=== PATIENT | male | born 1965 | race Caucasian/White ===

== ENCOUNTER 2019-01-27 17:59 | Emergency (ER) | payer OTHER, SELFPAY ==
[2019-01-27 18:04] VITALS: BP 145/86; PULSE 61; RESP 20; TEMP 37; O2SAT 98; BMI 34.2
--- NOTE | 2019-01-27 18:12 | DI.US.S_ITS ---
PROCEDURE: US PERIPH VENOUS LOW EXTREM LT INDICATIONS: LEFT LEG PAIN TECHNIQUE: Real-time imaging, as well as color and pulse Doppler interrogation, were performed of the lower extremity deep veins from the inguinal ligament to the popliteal fossa. COMPARISON: None. FINDINGS: The common femoral, femoral and popliteal veins are normally compressible, and free of intraluminal thrombus. Color and pulse Doppler demonstrate normal phasic intraluminal flow. There is normal augmentation response to distal compression maneuver. No thrombosis in the area of concern in the lateral calf and lateral proximal lower extremity. IMPRESSION: No left lower extremity DVT. Dictated by: Florencio Little M.D. on 01/27/2019 at 19:49 Approved by: Florencio Little M.D. on 01/27/2019 at 19:50
--- NOTE | 2019-01-27 18:52 | ED_ITS ---
HPI - Extremity Problem General Chief complaint: Extremity Problem,Nontraumatic Stated complaint: thinks blood clot left leg Time Seen by Provider: 01/27/19 18:52 Source: patient Mode of arrival: ambulatory Limitations: no limitations History of Present Illness HPI Narrative: Patient is a 53-year-old male with known arthritis. Is also under the care of a chiropractor. Patient states that for the past several days he has thought that he is having swelling in his left lower extremity. Has had decreased exercise tolerance to pain in his left lower extremity. Was seen by his chiropractor who thought that he potentially could have a blood clot was sent to the emergency department for evaluation. Related Data Previous Rx's Medication Instructions Recorded gabapentin 300 mg PO DAILY #30 cap 01/27/19 Allergies Allergy/AdvReac Type Severity Reaction Status Date / Time cyclobenzaprine AdvReac Verified 01/27/19 18:09 [facility] Review of Systems Constitutional Denies fever(s) and Denies headache(s) ENT Ears, Nose, Mouth, and Throat: Denies headache(s) Cardiovascular Denies chest pain and Denies dyspnea Respiratory Denies dyspnea Gastrointestinal Gastrointestinal: Denies abdominal pain Musculoskeletal Reports tingling (Left leg) Comments: Left leg pain and swelling Integumentary/Breasts Denies lesions and Denies rash Neurologic Denies headache(s) and Reports tingling (Left leg) Hematologic/Lymphatic Denies easy bleeding and Denies easy bruising [facility] Medical History Arthritis (Acute) Social History Smoking Status: Never smoker Social History Smoking Status: Never smoker Exam Initial Vital Signs Initial Vital Signs: Vital Signs Temperature 98.6 F 01/27/19 18:04 Pulse Rate 61 01/27/19 18:04 Respiratory Rate 20 01/27/19 18:04 Blood Pressure 145/86 H 01/27/19 18:04 Pulse Oximetry 98 01/27/19 18:04 Const General: cooperative, comfortable and well groomed Orientation: alert and awake HENMT Head: normal to inspection and normocephalic Resp Effort & Inspection: normal respiratory effort Cardio Rate: regular rate Skin Lesions: no lesions Rashes: no rashes Neuro General: alert and awake Cognition: normal cognition Speech: speech normal Motor: muscle tone normal throughout Extrem General: normal to inspection, capillary refill normal and No edema Psych Appearance: grossly normal and well kempt Course Orders Ordered: ED Orders 01/27/19 18:12 US perip venous low extrem lt Stat Vital Signs - 8 hr 01/27/19 18:04 01/27/19 20:10 Temperature 98.6 F Pulse Rate 61 53 L Respiratory Rate 20 16 Blood Pressure 145/86 H 122/77 Pulse Oximetry 98 98 MDM - Extremity (Nontraumatic) Imaging Data US - abdomen: Radiologist's impression: [address] [address] Ultrasound Report Signed Patient: Dallas Briones JMR#: [id number] : 1965Acct:[id number] Age/Sex: 53 / MDate of Service: 01/27/19 Loc: ED Accession Number: [id number] Procedure: [facility] venous low extrem lt Ordering Provider: Dallas Rondon D.O. PROCEDURE: [facility] VENOUS LOW EXTREM LT INDICATIONS: LEFT LEG PAIN TECHNIQUE: Real-time imaging, as well as color and pulse Doppler interrogation, were performed of the lower extremity deep veins from the inguinal ligament to the popliteal fossa. COMPARISON: None. FINDINGS: The common femoral, femoral and popliteal veins are normally compressible, and free of intraluminal thrombus. Color and pulse Doppler demonstrate normal phasic intraluminal flow. There is normal augmentation response to distal compression maneuver. No thrombosis in the area of concern in the lateral calf and lateral proximal lower extremity. IMPRESSION: No left lower extremity DVT. Dictated by: Florencio Little M.D. on 01/27/2019 at 19:49 MDM Narrative Medical decision making narrative: His history and physical exam is not cons istent with a blood clot. Ultrasound confirms this. He has no signs of cellulitis. Potentially has a flare of his arthritis. He has been taking anti- inflammatories. Will start him on gabapentin. He states that he has been told that he potentially has sciatic issues. Will have him contact his primary doctor. He expressed understanding and agreement with plan. He was given return precautions and follow-up instructions Discharge Plan Departure Patient Disposition: Home Clinical Impression: Left leg pain Discharge Date/Time: 01/27/19 20:10 Interventions: ED Discharge Assessment Last Done: 01/27/19 20:10 Instructions: DI for Leg Pain Activity Restrictions/Additional Instructions: Start taking the medications as directed. I do recommend you talk with your primary doctor tomorrow about follow-up and future workup. Return to the emergency department for any new symptoms Prescriptions: New gabapentin 300 mg capsule 300 mg PO DAILY Qty: 30 RF: 0
[2019-01-27 20:10] VITALS: BP 122/77; PULSE 53; RESP 16; O2SAT 98
== END 2019-01-27 20:10 | disposition home or self-care (01) ==
PROVIDERS: Emergency Provider Emergency Medicine
DX: M79.605 Pain in left leg (principal)
CPT/HCPCS: 93971; 99282; 99284

== ENCOUNTER → 2019-03-22 17:47 | Outpatient (CLI) | payer OTHER, SELFPAY ==
--- NOTE | 2019-03-22 | DI.MRI.S_ITS ---
PROCEDURE: MR LUMBAR SPINE WO CON INDICATIONS: RADICULOPATHY, LUMBAR REGION TECHNIQUE: Noncontrast sagittal T1 spin echo and T2 fast echo, sagittal STIR, axial T1 and T2 fast spin echo through the lumbar spine. In cases with scoliosis, additional coronal T2 fast spin echo may be performed. COMPARISON: [facility], CR, XR LUMBAR SPINE WITH OLBIQUES PLUS FLEXION EXTENSION, 03/01/2019, 8:21. FINDINGS: Image quality: Excellent. Alignment and Curvature: There is mild L3-L4 and L5-S1 retrolisthesis. There is trace L1-L2, L2-L3 and L4-L5 retrolisthesis. Bones: Transitional anatomy with 6 lumbar type nonrib-bearing vertebral bodies noted. For purposes of this dictation the 6 lumbar type nonrib-bearing vertebral bodies will be designated L1-S1 with the last non-rudimentary disc designated S1-S2. Marrow is of normal overall signal. No acute vertebral body compression fractures. Spinal Cord: Conus medullaris terminates at the L1-2 disc level. Visualized cord demonstrates normal signal and size. Paraspinous Soft Tissues: No paravertebral masses. L1-L2: Loss of disc signal and height. Moderate, diffuse disc bulge. Moderate-sized central disc protrusion. Moderate narrowing of the central canal. Mild bilateral neural foraminal narrowing. Central disc protrusion abuts and displaces the conus medullaris. L2-L3: Loss of disc signal and height. Moderate, diffuse disc bulge. Small central disc protrusion. Mild bilateral facet hypertrophy. Moderate narrowing of the central canal. Mild bilateral neural foraminal narrowing. No neural compression. L3-L4: Loss of disc signal and height. Moderate, diffuse disc bulge. Moderate facet and mild ligamentum flavum hypertrophy. Severe narrowing of the central canal with slight compression of the nerve roots of cauda equina. Moderate bilateral neural foraminal narrowing. L4-L5: Loss of disc signal and height. Mild/moderate diffuse disc bulge. Moderate bilateral facet hypertrophy. Moderate to severe narrowing of the central canal. Severe bilateral neural foraminal narrowing with compression of the L4 nerve roots. L5-S1: Loss of disc signal and height. Moderate, diffuse disc bulge. Small central disc protrusion. Moderate right and mild left facet hypertrophy. Moderate narrowing of the central canal. Disc protrusion abuts and slightly compresses the traversing right L5-S1 nerve root. Severe bilateral neural foraminal narrowing with compression of the exiting L5 nerve roots. S1-S2: Loss of disc signal. Mild, diffuse disc bulge. Left central disc protrusion Moderate bilateral facet hypertrophy. Mild narrowing of the central canal. Left central disc protrusion abuts and displaces the traversing left S2 nerve root. Severe bilateral neural foraminal narrowing with compression of the exiting S1 nerve roots. IMPRESSION: 1. Transitional anatomy with 6 lumbar-type weo-cye-rvoopzi vertebral bodies. 6 lumbar type nonrib-bearing vertebral bodies were designated L1-S1 with the last non-rudimentary disc designated S1-S2. 2. Multilevel degenerative disc disease. 3. Multilevel facet arthropathy. 4. Severe L3-L4 central canal narrowing. Moderate to severe L4-L5 central canal narrowing. Moderate L2-L3 and L5-S1 central canal narrowing. Mild S1-S2 central canal narrowing. 5. Severe bilateral L4-L5, L5-S1 and S1-S2 neural foraminal narrowing. Moderate bilateral L3-L4 neural foraminal narrowing. Mild bilateral L1-L2 and L2-L3 neural foraminal narrowing. 6. Slight compression of the nerve roots of cauda equina at the level of the L3-L4 disc secondary to central canal narrowing. 7. Compression of the exiting bilateral L4, L5 and S1 nerve roots secondary to neural foraminal narrowing. Dictated by: Melissa Betancourt MD, PhD on 03/23/2019 at 8:26 Approved by: Melissa Betancourt MD, PhD on 03/23/2019 at 8:43
== END ==
PROVIDERS: Visit Provider Physical Medicine & Rehabilitation
DX: M51.16 Intervertebral disc disorders with radiculopathy, lumbar region (principal); M51.17 Intervertebral disc disorders with radiculopathy, lumbosacral region; M47.26 Other spondylosis with radiculopathy, lumbar region; M47.27 Other spondylosis with radiculopathy, lumbosacral region; M48.061 Spinal stenosis, lumbar region without neurogenic claudication; M48.07 Spinal stenosis, lumbosacral region
CPT/HCPCS: 72148

== ENCOUNTER 2019-07-13 08:03 | Day surgery (SDC) | payer OTHER, SELFPAY ==
[2019-07-13 08:25] VITALS: BP 130/86; PULSE 55; RESP 16; TEMP 36.7; O2SAT 100; BMI 38.7
--- NOTE | 2019-07-13 08:41 | PM.HP.1 ---
History of Present Illness History of Present Illness Chief complaint: [id number] COLONOSCOPY Patient History Family & Social History Tobacco & Substance use: Smoking Status Never smoker alcohol intake frequency holiday/special occasion Substance Use Type does not use Meds Home Medications and Allergies Home Medications Medication Instructions Recorded Confirmed Type gabapentin 300 mg PO TID 07/13/19 07/13/19 History lisinopril 20 mg PO DAILY 07/13/19 07/13/19 History naproxen sodium [Aleve] 440 mg PO DAILY 07/13/19 07/13/19 History omeprazole 20 mg PO DAILY 07/13/19 07/13/19 History Allergies Allergy/AdvReac Type Severity Reaction Status Date / Time aspirin [From Fiorinal] AdvReac Intermediate Nausea Verified 07/13/19 08:22 butalbital [From Fiorinal] AdvReac Intermediate Nausea Verified 07/13/19 08:22 caffeine [From Fiorinal] AdvReac Intermediate Nausea Verified 07/13/19 08:22 cyclobenzaprine AdvReac Intermediate Nausea Verified 07/13/19 08:21 [From Flexeril] Review of Systems Review of Systems ROS: Yes All systems reviewed with the patient and are negative except as otherwise documented Exam Narrative Exam Narrative: awake alert and oriented x3, no acute distress, lungs clear to auscultation bilaterally, heart regular rate and rhythm, no lower extremity edema Assessment & Plan Assessment & Plan narrative: positive fit, for colonoscopy
[2019-07-13] MEDS: SODIUM CHLORIDE 0.9% 1,000 ML 200 ML IV (08:47)
[2019-07-13] MEDS: fentaNYL 250 MCG/5 ML INJ IV (09:38)
[2019-07-13] MEDS: MIDAZOLAM 5 MG/5 ML VIAL IV (09:39)
--- NOTE | 2019-07-13 09:48 | PM.OP.ENDO ---
Operative Date/Time/Diagnoses Date of procedure: 07/13/19 Procedure & Clinicians Study performed: Colonoscopy Moderate conscious sedation was administered by the endoscopy nurse and supervised by the endoscopist. The following parameters were monitored: Oxygen saturation, heart rate, blood pressure, and response to care. Sedation totals: 3 mg midazolam, 100 mcg fentanyl Indications: Positive FIT, last colonoscopy was 7 years ago. Procedure Notes Procedure in detail: Prior to the procedure, history and physical was performed, and patient medications and allergies were reviewed. Preprocedure nursing history and assessment was reviewed. Patient identification and proposed procedure were verified by the physician and nurse in the procedure room. The physical status of the patient was reassessed after the procedure. After informed consent was obtained including risks, benefits, and alternatives, the scope was passed under direct vision. Throughout the procedure, the patient's blood pressure, pulse, and oxygen saturations were monitored continuously. The colonoscope was introduced through the anus and advanced to the cecum as identified by the appendiceal orifice and ileocecal valve. The patient tolerated the procedure well. Bowel prep was deemed adequate to detect polyps greater than 5 mm. Perianal and digital rectal examinations were unremarkable. Retroflexion in the rectum revealed small grade 1 internal hemorrhoids The entire examined colon was normal appearing. No masses or large polyps were noted. Impression: Normal colonoscopy Internal hemorrhoids No specimens taken Sedation minutes: 17 Specimen(s): none sent Complications: none Post-procedure Plan for aftercare: Repeat colonoscopy in 10 years for screening purposes Resume home medications Resume previous diet Discharge home with escort
[2019-07-13 09:54] VITALS: BP 145/92; PULSE 84; RESP 15; TEMP 36.4; O2SAT 98
[2019-07-13 09:56] VITALS: BP 152/90; PULSE 57; RESP 12; O2SAT 97
[2019-07-13 10:01] VITALS: BP 111/76; PULSE 61; RESP 11; O2SAT 98
[2019-07-13 10:06] VITALS: BP 120/79; PULSE 55; RESP 15; O2SAT 98
[2019-07-13 10:26] VITALS: BP 118/79; PULSE 51; RESP 13; TEMP 36.3; O2SAT 98
== END 2019-07-13 10:34 | disposition home or self-care (01) ==
PROVIDERS: PCP Nurse Practitioner; Referring Provider Internal Medicine; Visit Provider Internal Medicine
PROC: 0DJD8ZZ Inspection of Lower Intestinal Tract, Via Natural or Artificial Opening Endoscopic (ICD-10-PCS; CPT 45378; principal; 2019-07-13 09:00)
DX: R19.5 Other fecal abnormalities (principal); K64.0 First degree hemorrhoids
CPT/HCPCS: 45378; J2250; J3010

== ENCOUNTER → 2020-10-08 15:42 | Outpatient (CLI) | payer BC, SELFPAY | PROVIDERS: PCP Nurse Practitioner; Visit Provider Registered Nurse | DX: L02.91 Cutaneous abscess, unspecified (principal) | CPT/HCPCS: 87070; 87075; 87205 ==

== ENCOUNTER → 2022-05-19 14:25 | Outpatient (CLI) | payer OTHER, SELFPAY ==
[2022-05-19 23:06] LABS: Add Manual Diff / Slide Review NO; Basophils Absolute Auto 0 /uL (0-100); Basophils Percent Auto 0.6 % (0-2); Eosinophils Absolute Auto 200 /uL (0-450); Hematocrit 44.9 % (41-53); Hemoglobin 15.3 g/dL (13.5-17.5); Lymphocytes Absolute Auto 2200 /uL (1100-4500); Lymphocytes Percent Auto 28.4 % (25-40); Mean Corpuscular Volume 90.9 fL (80-100); Monocytes Absolute Auto 700 /uL (0-900); Monocytes Percent Auto 9.2 % (3-14); Neutrophils Absolute Auto 4600 /uL (1500-7000); Neutrophils Percent Auto 59.8 % (50-75); Platelet Count 170 X10^3/uL (150-400); Red Blood Cell Count 4.93 X10^6/uL (4.5-5.9); Red Cell Distribution Width 13.7 % (11.6-14.8); White Blood Cell Count 7.7 X10^3/uL (4.5-11.0)
[2022-05-20 00:44] LABS: Blood Urea Nitrogen 12 mg/dL (9-20); Calcium 8.8 mg/dL (8.4-10.2); Carbon Dioxide 23 mmol/L (22-32); Chloride 105 mmol/L (98-107); Estimated Glomerular Filt Rate > 60 mL/min (>60); Glucose 106 mg/dL (70-100); HEMOLYSIS < 15 (0-50); Potassium 3.7 mmol/L (3.4-5.1); Sodium 142 mmol/L (137-145)
== END ==
PROVIDERS: PCP Nurse Practitioner; Referring Provider Orthopaedic Surgery; Visit Provider Orthopaedic Surgery
DX: Z01.818 Encounter for other preprocedural examination (principal); Z01.812 Encounter for preprocedural laboratory examination; M25.562 Pain in left knee
CPT/HCPCS: 36415; 80048; 85025; 93005; 93010

== ENCOUNTER → 2022-06-23 10:59 | Outpatient (CLI) | payer OTHER, SELFPAY ==
[2022-06-23 12:41] LABS: COVID19 -Nasal RAPID Negative (Negative)
== END ==
PROVIDERS: Internal Medicine; PCP Nurse Practitioner; Referring Provider Orthopaedic Surgery; Visit Provider Orthopaedic Surgery
DX: Z20.822 Contact with and (suspected) exposure to COVID-19 (principal)
CPT/HCPCS: 87635; C9803

== ENCOUNTER 2022-06-26 10:00 | Observation (INO) | payer OTHER, SELFPAY ==
[2022-06-17 09:35] VITALS: BMI 37.3
[2022-06-25] VITALS (12 sets, daily range): BP systolic 120–155; BP diastolic 69–90; PULSE 56–81; RESP 13–19; TEMP 35.9–37.2; O2SAT 92–97; BMI 37.3
--- NOTE | 2022-06-25 06:00 | DI.RAD.S_ITS ---
PROCEDURE: XR KNEE LT 1TO2V INDICATIONS: prosthesis placement TECHNIQUE: 2 view(s) of the knee acquired. COMPARISON: [facility], CR, XR KNEE 4+ VIEWS LEFT, 02/13/2022, 9:41. FINDINGS: Bones: Patient is status post knee joint arthroplasty. Hardware components are in expected positions. Visualized bony structures are intact. Soft tissues: Overlying postoperative changes are noted. IMPRESSION: Knee arthroplasty postsurgical changes. Dictated by: Ella Regan M.D. on 06/25/2022 at 17:54 Approved by: Ella Regan M.D. on 06/25/2022 at 17:54
[2022-06-25] MEDS: LACTATED RINGERS 1,000 ML 84 ML IV (13:56)
[2022-06-25] MEDS: CELECOXIB 200 MG CAPSULE PO (14:08)
[2022-06-25] MEDS: PREGABALIN 75 MG CAPSULE PO (14:08)
[2022-06-25] MEDS: ACETAMINOPHEN 325 MG TABLET 975 MG PO (14:08)
--- NOTE | 2022-06-25 15:15 | PM.PREOP ---
Pre-operative Note COVID-19 COVID-19 status: Negative Result date/Date tested (Pos, Neg/Pending): 06/23/22 Interval Note History & Physical reviewed/Exam performed by Physician: Yes Changes to H&P: No
[2022-06-25] MEDS: CEFAZOLIN VIAL 3 GM in SODIUM CHLORIDE 0.9% 100 ML IV (15:50)
[2022-06-25] MEDS: TRANEXAMIC ACID 1,000 MG VIAL 1000 MG INJ ×2 (15:52→16:58)
--- NOTE | 2022-06-25 16:11 | SUR.OPER ---
Supine on padded OR bed. Pillow under head, arms secured on padded armboards <90 degree abduction. Safety belt across torso. Non-operative leg secured with tape over blanket over lower leg. Operative leg secured in [employer] positioner. Foam padded brace at thigh of operative leg.
[2022-06-25] MEDS: BUPIVACAINE LIPOSOME 266 MG/20 ML VIAL INJ (16:18)
[2022-06-25] MEDS: MORPHINE 4 MG/ML INJ INJ (16:18)
[2022-06-25] MEDS: BUPIVACAINE 0.5% W/ EPI (PF) 30 ML VIAL INJ (16:19)
--- NOTE | 2022-06-25 17:21 | PM.OP.1 ---
Operative Date/Time/Diagnoses Date of procedure: 06/25/22 Time of procedure: 17:21 Pre-op diagnosis: Left knee osteoarthritis Post-op diagnosis: same Procedure & Clinicians Procedure: Left total knee replacement Same procedure as scheduled: Yes Indications: The patient has had progressively worsening left knee pain with radiographic changes consistent with arthritis. Non-operative management has failed and the patient has requested total knee replacement. The risks, benefits and alternatives to surgery were discussed with the patient prior to proceeding. Risks discussed included, but were not limited to, failure to relieve pain, stiffness, infection, nerve damage, deep venous thrombosis, pulmonary embolism, stroke, coma, heart attack, permanent paralysis and , as well as the potential need for eventual revision of the prosthetic. Surgeon: Sal Sheldon Produce Team Lead: Pako Julien Click Yes if Unassisted: No Anesthesia Type: General, Spinal and Local Operative Notes Findings: Severe tricompartmental osteoarthritis with large osteophytes throughout. Closure Type: primary Specimen(s): none sent Prosthetic devices, grafts, tissues, transplants, or devices: Implants used in this procedure were manufactured by the [employer] and [employer] and included the BCS II Journey total knee replacement with a size 6 left Oxinium femoral component, a size 6 left non porous tibial base plate with a 9 mm cross-linked polyethylene tibial insert, and a 38 mm oval Denice II patella. Applied: implant(s) Estimated Blood Loss (mL): 25 Blood products transfused: none Tourniquet time (min): 54 Procedure in detail: The patient was seen in the pre-operative area, where the left knee was identified as the operative site and this was marked with my initials. The patient received pre-operative antibiotics, and was taken to the operating room and placed on the operative table in the supine position. After satisfactory anesthesia, a multimedia project manager out was performed. The left leg was encircled with a tourniquet about the proximal thigh, and the leg was prepared from the toes to the tourniquet with ChloroPrep in the usual fashion and draped through sterile drapes. The leg was elevated and exsanguinated with Eschmark bandage and the tourniquet inflated to 250 mmHg pressure. The knee was approached through an approximately 18 cm incision centered over the patella and carried into the knee through a medial parapatellar arthrotomy. The anterior osteophytes and soft tissues were removed. The rotational landmarks of Frida's line and the transepicondylar axis were marked on the femur with electrocautery, and intramedullary guide holes for the femur and tibia were created. The distal femoral cut was made in 6 degrees of valgus using the intramedullary guide at the primary cut setting. The proximal tibial cut was then made using the intramedullary guide, taking 9 mm of bone off the less involved side. The extension gap was checked and the rotation of the femoral component confirmed with the gap balancing blocks. The anterior, posterior and chamfer cuts were then made. The posterior osteophytes and soft tissues were then removed. The posterior capsule was injected with part of a mixture of 60 ml 0.25% Marcaine mixed with 20 ml Exparel and 4 mg of morphine for post-operative pain control. The remainder of this mixture was injected into the capsule and subcutaneous tissues during cement curing. The tibia was prepared with the rotation set by an extra medullary guide. Trial tibial and femoral components were then placed and the intercondylar notch cut through the femoral trial. Range of motion was 0-135 degrees, with good stability throughout the range. The patella was then cut to accommodate the patellar prosthetic. There was no need for a lateral release. The trials were then removed, and the femoral hole plugged with a bone plug. The bone was prepared with pulsatile lavage, and dried with a sponge. Cement was applied and the final prosthetics placed. Excess cement was removed during and after cement curing. After confirming there was no extruded cement posteriorly, the final tibial insert was placed. The knee was copiously irrigated and the tourniquet deflated. Hemostasis was obtained. The capsule was closed with interrupted # 2 polyester sutures. The subcutaneous layer was closed with 3-0 Vicryl, and the skin with a running 3-0 V-Lock suture and Dermabond. An Aquacel Ag dressing was applied and the patient was taken to recovery having tolerated the procedure well. A skilled assistant property manager was required during this case to provide positioning, retraction to protect vital structures and exposure. Without the services of Mr. Julien, the surgery could not be performed in a safe, expedient manner. Complications: none Post-operative Condition: stable Disposition: PACU Plan for aftercare: The patient will be maintained on a standard total knee replacement protocol with weight bearing as tolerated. The patient will receive aspirin and sequential compression devices for DVT prophylaxis. The patient will be discharged home when safe for the home environment.
[2022-06-25] MEDS: ONDANSETRON 4 MG/2 ML INJ IV ×2 (17:51→18:59)
[2022-06-25] MEDS: LACTATED RINGERS 1,000 ML 100 ML IV (18:59)
[2022-06-25] MEDS: ACETAMINOPHEN 325 MG TABLET 650 MG PO ×2 (19:09→23:07)
[2022-06-25] MEDS: hydrOXYzine pamoate 25 MG CAPSULE PO (19:09)
[2022-06-25] MEDS: OXYCODONE IR 5 MG TABLET PO (19:58)
[2022-06-25] MEDS: DOCUSATE 100 MG CAPSULE PO (20:12)
[2022-06-25] MEDS: ASPIRIN EC 81 MG TABLET PO (20:12)
[2022-06-25] MEDS: IBUPROFEN 400 MG TABLET PO (20:12)
[2022-06-25] MEDS: PANTOPRAZOLE DR 20 MG TABLET PO (20:12)
[2022-06-25] MEDS: CEFAZOLIN 2 GM/100 ML PREMIX 100 ML IV (23:07)
[2022-06-25] MEDS: OXYCODONE IR 10 MG TABLET PO (23:07)
[2022-06-26] MEDS: IBUPROFEN 400 MG TABLET PO ×5 (01:08→20:18)
[2022-06-26 01:10] VITALS: BP 139/99; PULSE 69; RESP 17; TEMP 36.3; O2SAT 93
[2022-06-26] MEDS: OXYCODONE IR 10 MG TABLET PO ×2 (01:44→09:08)
--- NOTE | 2022-06-26 03:01 | PC.NURSE ---
pt had a bladder scan of 421, in and out cath with 1,000 ml of yellow urine.
[2022-06-26 05:13] VITALS: BP 134/92; PULSE 74; RESP 18; TEMP 36.4; O2SAT 97
[2022-06-26] MEDS: ACETAMINOPHEN 325 MG TABLET 650 MG PO ×3 (05:21→18:28)
[2022-06-26] MEDS: LACTATED RINGERS 1,000 ML 100 ML IV (05:21)
[2022-06-26 05:38] LABS: Hematocrit 41.8 % (41-53); Hemoglobin 14.1 g/dL (13.5-17.5)
[2022-06-26] MEDS: TAMSULOSIN 0.4 MG CAPSULE PO (06:43)
--- NOTE | 2022-06-26 06:43 | P.DS_ITS ---
History of Present Illness History of Present Illness Date Patient Seen: 06/26/22 Time Patient Seen: 06:44 Chief complaint: TKA Left *OPB* Narrative: Operative Date/Time/Diagnoses Date of procedure: 06/25/22 Time of procedure: 17:21 Pre-op diagnosis: Left knee osteoarthritis Post-op diagnosis: same Procedure & Clinicians Procedure: Left total knee replacement Same procedure as scheduled: Yes Indications: The patient has had progressively worsening left knee pain with radiographic changes consistent with arthritis. Non-operative management has failed and the patient has requested total knee replacement. The risks, benefits and alternatives to surgery were discussed with the patient prior to proceeding. Risks discussed included, but were not limited to, failure to relieve pain, stiffness, infection, nerve damage, deep venous thrombosis, pulmonary embolism, stroke, coma, heart attack, permanent paralysis and , as well as the potential need for eventual revision of the prosthetic. Surgeon: Sal Sheldon Floorhand: Pako Julien Click Yes if Unassisted: No Anesthesia Type: General, Spinal and Local Operative Notes Findings: Severe tricompartmental osteoarthritis with large osteophytes throughout. Closure Type: primary Specimen(s): none sent Prosthetic devices, grafts, tissues, transplants, or devices: Implants used in this procedure were manufactured by the [employer] and included the BCS II Journey total knee replacement with a size 6 left Oxinium femoral component, a size 6 left non porous tibial base plate with a 9 mm cross-linked polyethylene tibial insert, and a 38 mm oval Denice II patella. Applied: implant(s) Estimated Blood Loss (mL): 25 Blood products transfused: none Tourniquet time (min): 54 Discharge Providers Provider Discharge Date: 06/26/22 Primary care physician: TRINIDAD Paul Consults: 06/25/22 18:30 Consult to Discharge Planning Routine Comment: Consult to Physical Therapy Evaluate & Treat Comment: Physician Instructions: postop TKA protocol Discharge provider: Joanna Del Valle PA-C Summary Hospital Course Discharge Diagnosis: Left knee osteoarthritis, s/p left total knee arthroplasty Hospital Course: Mr Briones's hospital course was remarkable for urinary retention on the evening after surgery, which required in-and-out catheterization. On the morning of POD# 1, I rx'd a dose of tamsulosin to help with this; pt states this he had mild urinary retention postoperatively in the past. He is otherwise feeling well, no N/V, pain well-controlled with oral medication. He would like to go home today if he progresses appropriately w/ PT. Exam Vital Signs (past 8 hours): - 06/26/22 01:10 06/26/22 05:13 Temperature 97.3 F L 97.5 F L Pulse Rate 69 74 Respiratory Rate 17 18 Blood Pressure 139/99 H 134/92 H Pulse Oximetry 93 97 Oxygen Flow Rate 0 0 Fraction of Inspired Oxygen 32 SaO2/FiO2 Ratio 303 Oxygen Delivery Method Nasal Cannula Oxygen Flow Rate 0 Narrative Exam Narrative: 4/5 strength in hip flexors, quadriceps, hamstrings; 5/5 DF, PF, EHL on left. Sensation to light touch intact throughout LLE. Calf soft, compressible, nontender and without palpable cords or masses. JOAQUINA wrap intact, Aquacel dressing CDI. Objective Labs Result Diagrams: 06/26/22 05:13 Labs: Laboratory Results - last 24 hr 06/26/22 05:13 Hgb 14.1 Hct 41.8 PFSH Medical History (Updated 06/17/22 @ 10:14 by Sada Barahona RN) Abscess Arthritis Back pain with sciatica (~2009) Cellulitis Chicken pox (~1968) COVID-19 virus infection (04/2022) Dysphagia Eosinophilic esophagitis Esophageal dilatation Esophagus disorder GERD (gastroesophageal reflux disease) Hyperlipidemia Hypertension Impaired fasting glucose Lumbar spine pain (~2018) Obstructive sleep apnea Osteoarthritis (~2014) Overweight (BMI 25.0-29.9) Sciatica Severe obesity (BMI >= 40) Sleep apnea (~2017) Vitamin D deficiency Surgical History (Updated 06/26/22 @ 06:46 by Joanna Del Valle PA-C) Anesthesia H/O removal of cyst History of cholecystectomy (~1984) History of foot surgery (~1995) History of knee replacement (~2015) Hx of arthroscopy of left knee Hx of arthroscopy of right knee Status post LASIK surgery (~1998) Family History Father Diabetes mellitus History of heart disease Hypertension Hyperlipidemia Smoker Mother Cancer History of heart disease Smoker Brother History of heart disease Brother Substance abuse Brother Stroke Social History household members: spouse and children Smoking Status: Never smoker alcohol intake: current Discharge Assessment & Plan Assessment and Plan Assessment: Left knee osteoarthritis, s/p left total knee arthroplasty Plan of Treatment: Discharge home after PT if PT agrees and pt is able to void independently. Multimodal pain control, ASA 81 mg BID for VTE prophylaxis, f/u as scheduled in 2 weeks. Discharge Plan Discharge Plan Patient Disposition: Home Discharge orders & Medications Discharge Orders: Discharge (Order); Ordered 06/26/22 Ordered By: Joanna Del Valle Prescriptions: New docusate sodium 100 mg Capsule 100 mg PO BID PRN (Reason: constipation) Qty: 60 1RF hydroxyzine pamoate 25 mg Capsule 25 mg PO Q6H PRN (Reason: muscle spasm) Qty: 120 0RF oxycodone 5 mg Tablet 5 mg PO Q4H PRN (Reason: pain, severe) Qty: 60 0RF Continued omeprazole 20 mg Capsule,Delayed Release(Dr/Ec) 20 mg PO BEDTIME naproxen sodium [Aleve] 220 mg Tablet 440 mg PO DAILY lisinopril 40 mg Tablet 40 mg PO DAILY Follow up/Referrals: Rosibel Hull ARNP [Primary Care Provider] - Sal Sheldon MD [Physician] - As previously scheduled (Follow up w/ Dr Sheldon on 07/08/2022 @ 9:30 am at [facility] in [place].) Diet/Activity/Treatments Diet: Diet as Tolerated Activity: Walk frequently! Cold/Heat Therapy: Ice to knee as needed for pain. Skin/Wound/Dressing Care Report to your healthcare provider any signs of infection, such as:: chills, fever, night sweats, unusual drainage and unusual redness Dressing: May remove JOAQUINA wrap and shower on 06/28/2022. Leave Aquacel dressing in place until follow up in office. No bathing or otherwise soaking incision. Call the office if the dressing becomes saturated inside. Visit Report/Discharge Packet Instructions: DI for Knee Replacement Stand Alone Forms: Surgery Discharge Discharge Data Primary Care Provider: Rosibel Hull Attending Provider: Sal Sheldon Quality VTE Deep Vein Thrombosis/Pulmonary Embolism Present on Admission: No
[2022-06-26 07:45] VITALS: BP 148/94; PULSE 60; RESP 18; TEMP 36.8; O2SAT 95
[2022-06-26 09:04] VITALS: BP 148/72
[2022-06-26] MEDS: lisinopriL 20 MG TABLET 40 MG PO (09:04)
[2022-06-26] MEDS: CEFAZOLIN 2 GM/100 ML PREMIX 100 ML IV (09:04)
[2022-06-26] MEDS: ASPIRIN EC 81 MG TABLET PO ×2 (09:05→20:18)
[2022-06-26] MEDS: DOCUSATE 100 MG CAPSULE PO ×2 (09:06→20:18)
--- NOTE | 2022-06-26 09:06 | CM.DANOTE ---
Addendum entered by Sandie Damon R.N. 06/26/22 09:18: Sandie Damon RN/Folder Machine Operator Original Note: DCP: Case received, EMR reviewed, this bulk system operator intoduced self to patient was able to obtain information regarding pt's baseline activity level prior to hospitalization, as well as current living situation. DCP's assessment completed with information currently available. Pt came to the hospital via POV for a surgical procedure under the care of the orthopedic team. PCP- Dr. Angeles, [facility] Pt came to the hospital via POV for planned Left Total Knee Arthroplasty, with history of left knee osteoarthritis. Met with pt in his room with his present. He confirmed that he resides in [place] and that he lives with his . Pt reports that he drives at baseline and that he did not use any DME prior to surgery. He reports that he has one step going into his house. He confirmed that his primary care physician is Dr. Angeles at the [facility] in [place]. He states that he is set up with [facility] outpatient PT once discharge. P: Home with and outpatient PT at [facility]. Discharge Planning/Care Management CM Discharge Assessment Start: 06/26/22 09:02 Freq: Status: Active Protocol: Document 06/26/22 09:02 [email or web address] (Rec: 06/26/22 09:06 [id number]) Discharge Planning Assessment Assigned Financial Recruiter Sandie Damon RN/Folder Machine Operator Advance Directives? Yes Advance Directives on File No History Provided By Patient,Significant Other, Medical Record Has Patient been admitted in last 30 No days? Prior Living Arrangements House Household Members spouse,children Type of transporation used prior to Drives own vehicle admit Independent with ADL's Yes Is patient alert and oriented? Yes Caregiver for Another No Patient/Family Preference OP PT Therapy Comment [facility] PT Barriers to Discharge No Discharge Plan Home Transportation Arrangement will transport home Whiteboard Updated in Patient Room with Yes name and ext. # of Financial Recruiter Review Status In Process Next Review Type Continued Stay Review Pre-Anesthesia Assessment Start: 06/17/22 09:35 Freq: Status: Active Protocol: Document 06/17/22 09:35 CAB (Rec: 06/17/22 10:23 CAB [id number]) Pre-Anesthesia Assessment Preferred Name [facility] Patient Information Reviewed Via Phone Assessment Assessment Completed With Patient Diagnostic Results BMP/CMP,CBC,EKG Comment Labs/ECG @ 05/19/22, COVID screen @ 06/23/22 Primary Care Provider Rosibel Hull Seen Specialist in Last 12 Months Yes Specialist Seen Orthopedist Primary Language Kyrgyz Matrix Plater Required No Height 180.34 cm Weight 121.563 kg Body Mass Index (BMI) 37.3 Hearing Ability Normal Visual Assist Glasses Dentition Type Teeth, Natural Present Barriers to Learning None Hx Anesthesia Reactions No Hx Family Anesthesia Reaction No Hx Malignant Hyperthermia No Hx Blood Transfusions Yes: At due to Rh factor Hx Blood Transfusion Reaction No Anesthesia Review Requested No alcohol intake current alcohol intake frequency holidays/special occasions only Smoking Status Never smoker Substance Use Type does not use Pain Present Pain Reported Musculoskeletal Symptoms Abnormal Gait,Difficulty Walking,Joint Pain History of Falling (Recent or History of No ) Patient is completely paralyzed or No completely immobile Mental Status Oriented to own ability Is patient on oxygen? No Does patient have FUENTES/SOB No Hx Sleep Apnea Yes CPAP/BIPAP use prescribed and used routinely Currently Taking a Beta Jay No Can You Climb a Flight of Stairs Without Yes SOB Hx Chest Pain No Hx SOB No Hx Syncope or Dizziness No Anti-Coagulant Therapy No Has a Metallurgical Or Materials Technician No Cardiac Testing No Hx Pacemaker/ICD No Pacemaker Rep Required? No Cardiac Clearance Received Not Applicable Diet Type At Home Regular Dysphagia No Gastrointestinal Symptoms Reflux Genitourinary Symptoms Dribbling Chronic UTI No Urinary Catheter Present No Hx Urinary Self Catheterization No Diabetes No Hx Drug Resistant Organism No Presence of External or Internal Medical Yes: R TKR, 2 pins lt big toe, Devices CPAP Have you had any close contact with No someone diagnosed with COVID-19? Received a COVID vaccine? Yes Received all doses? Yes Marital Status Lives With spouse,children Current Living Arrangements House Number of Floors (Floors) One Floor Support System Spouse Does the Patient Have Assistance After Yes Surgery Patient Discharge Plan Description Return Home Comment Pt not advised on length of stay per surgeon Feels Safe in Current Environment Yes Been Physically Hurt or Threatened By a No Person in Current Environment Do you have thoughts of harming yourself None or others? Are you currently considering suicide? No Do you have a plan to hurt yourself or No Plan others? Do You Have Any Spiritual Beliefs That No May Affect Your HC Choices? Do You Have Any Cultural Practices That No May Affect Your HC Choices? Comment Agnostic Who Can We Speak to About Patient's Care Family, friends Identifying Code for Release of Patient Declines to issue Information Health Care Proxy/Next of Kin Stacey () Health Care Proxy Emergency Contact Name Stacey () Emergency Contact Advance Directives? Yes Advance Directives on File No Requested Patient Bring Advanced Yes Directives DOS Power of Air Brake Rigger Yes Power of Air Brake Rigger Name Stacey () Power of Air Brake Rigger PAC Instructions Bring CPAP/BIPAP,Durable medical equipment,Medications to take/avoid,Nasal antibiotic ,No ETOH/petroleum product on skin DOS,NPO,Pre-surgical wash ,Sensory aids,Sturdy shoes/ comfortable clothes,Do not bring valuables and remove jewelry
--- NOTE | 2022-06-26 10:20 | PT.IIE ---
Current Diagnoses Unilateral primary osteoarthritis, left knee (06/26/22) Presence of unspecified artificial knee joint (06/26/22) Surgery Performed Operation Date: 06/25/22 13:30 Actual Procedures p Total Knee Arthroplasty(Left) - Sal Sheldon MD Surgical History (Last Updated 06/17/22 @ 10:10 by Sada Barahona, RN) Anesthesia H/O removal of cyst History of cholecystectomy (~1984) History of foot surgery (~1995) History of knee replacement (~2015) Hx of arthroscopy of left knee Hx of arthroscopy of right knee Status post LASIK surgery (~1998) Medical History (Last Updated 06/17/22 @ 10:14 by Sada Barahona, CARMELO) Abscess Arthritis Back pain with sciatica (~2009) Cellulitis Chicken pox (~1968) COVID-19 virus infection (04/2022) Dysphagia Eosinophilic esophagitis Esophageal dilatation Esophagus disorder GERD (gastroesophageal reflux disease) Hyperlipidemia Hypertension Impaired fasting glucose Lumbar spine pain (~2018) Obstructive sleep apnea Osteoarthritis (~2014) Overweight (BMI 25.0-29.9) Sciatica Severe obesity (BMI >= 40) Sleep apnea (~2017) Vitamin D deficiency Physical Therapy Inpatient Evaluation/Re-Eval M1 PT/OT-IP Prior Functional Status Start: 06/26/22 13:54 Freq: NEEDED Status: Active Protocol: Document 06/26/22 10:20 AB (Rec: 06/26/22 14:11 AB [id number]) Medical Review Prior Functional Status Medical History Reviewed Yes Communication able to make needs known Mobility and Gait pt stated that he is independent with all mobilities and ambulation without AD Social History Household Members spouse Living Arrangements House Number of Floors (Floors) One Floor Number of Stairs To Enter/Railing? 1 step to enter Home Environment High Toilet,Tub/Shower Home Equipment Front Wheel Walker,Straight Cane,Hand Held Shower M2 PT-IP Current Condition Start: 06/26/22 13:54 Freq: NEEDED Status: Active Protocol: Document 06/26/22 10:20 AB (Rec: 06/26/22 14:11 AB [id number]) Physical Therapy Current Condition Current Condition Evaluation Date 06/26/22 Treatment Diagnosis s/p L TKA; difficulty in walking Onset Date 06/25/22 M3 PT-IP Subjective Start: 06/26/22 13:54 Freq: NEEDED Status: Active Protocol: Document 06/26/22 10:20 AB (Rec: 06/26/22 14:11 AB [id number]) Subjective Physical Therapy Visit Type Type Initial Evaluation Visit Start Time 10:20 Visit Stop Time 11:10 Total Visit Minutes 50 Number of WHISKEY FILTERER Visits 0 Physical Therapy Visit Comments Patient Comments agreeable to do PT Therapy Pain Assessment Pain When Pain Assessed At Rest Pain Present Pain Present Pain Reported Location Left Knee Intensity 5 Scale Used Numeric (0 - 10) Pain Management Techniques Apply Cold,Distraction, Modification of Treatment,Re- positioning,Timing of Activity with Medications M4 PT-IP Mobility and Gait Start: 06/26/22 13:54 Freq: NEEDED Status: Active Protocol: Document 06/26/22 10:20 AB (Rec: 06/26/22 14:11 AB [id number]) PT-Bed Mobility Assessment Supine to Sit Supine to Sit Standby Assistance Sit to Supine Sit to Supine Moderate Assistance PT-Transfer Assessment Sit to and From Stand Sit to and from Stand Contact Guard Assistance,1 Person Assistance,Use of Upper Extremities Equipment Transfer Assistive Device Gait Belt,Front Wheeled Walker Orthotic/Prosthetic Devices or Brace: No Transfers Transfer Destination Chair Transfer Technique ambulated Transfer Ability Level of Assist Contact Guard Assistance,1 Person Assistance,Use of Upper Extremities Comments Mobility Comments spouse in room with pt. pt completed supine to sit SBA . able to sit on EOB SBA. BP in sittin/78. c/o nausea. pt stated that he had his sx at 1600 yesterday. completed sit to stand CGA and ambulated in room using FWW ~ 10 ft CGA. c/o nausea. stated that oxycodone usually makes him nauseated. pt sat on the chair. Bp checked: 148 /79. pt agreed with caregiver training. educated spouse on how to use safety belt and how to assist pt . spouse was able to put safety belt on pt. educated pt and spouse for stair climbing techniques. pt then completed sit to stand from the chair with spouse assisting and ambulated ~ 5 ft and c/o dizziness/nausea. instructed pt to back up onto the chair and pt sat down. BP : 147/79. pt requested to go back to bed. spouse was able to assited pt to the bed and also assisted pt with sit to supine. positioned pt on the bed. call light and table placed within reach. Gait Assessment Gait Gait Assistance Required: Contact Guard Assist,1 Person Assist Distance (Feet) 10 Able to Maintain Weight Bearing Status Yes During Gait Assistive Devices Assistive Device Gait Belt,Front Wheeled Walker Gait Deviations General Gait Pattern Decreased Stride Length, Decreased Feet Clearance,Step- to Gait Factors Limiting Gait Function Factors Limiting Gait Function Decreased Activity Tolerance, Decreased Strength,Limited Range of Motion,Pain,Poor Balance,Poor Safety Awareness PT-Balance Assessment Sitting Balance and Reactions Static Sitting Balance Ability Good Dynamic Sitting Balance Ability Good Standing Balance and Reactions Static Standing Balance Ability Fair Dynamic Standing Balance Ability Fair Device Used FWW M5 PT-IP Objective Assessments Start: 06/26/22 13:54 Freq: NEEDED Status: Active Protocol: Document 06/26/22 10:20 AB (Rec: 06/26/22 14:11 AB [email or web address]) Orientation Orientation/Cognition Level of Alertness Alert Orientation Name,Place,Situation Language Function Ability No Deficits Noted Safety Awareness Understands Safety Issues Memory Description No Deficits Noted Gross Range of Motion Lower Extremity ROM Assessment Left Impaired Impairments L knee flexion: ~70 deg Strength Lower Extremity Strength Assessment Left Impaired Hip 4-/5 Knee 3+/5 Coordination Assessment Gross Coordination Gross Coordination WNL Muscle Tone Muscle Tone WNL Yes M6 PT-IP Treatment Start: 06/26/22 13:54 Freq: NEEDED Status: Active Protocol: Document 06/26/22 10:20 AB (Rec: 06/26/22 14:11 AB [id number]) Physical Therapy Treatment Education Education Provided Precautions,Weight Bearing Status,Post-Op Packet,Safety M7 PT-IP Assessment and Plan Start: 06/26/22 13:54 Freq: NEEDED Status: Active Protocol: Document 06/26/22 10:20 AB (Rec: 06/26/22 14:11 AB [email or web address]) PT Summary Assessment and Plan Potential Rehabilitation Potential Fair Status of Condition at Evaluation Evolving Summary Impairments Pain,ROM,Strength,Balance, Coordination,Sensation,Tone, Cognition,Bed Mobility, Transfers,Gait,Activity Tolerance Assessment Summary pt requiring CGA with mobility but unable to tolerate much activity with c/o nausea. caregiver training initiated but further training is needed . pt also has one step to enter the house and needs complete stair climbing training prior to d/c. will conduct further training this afternoon and re-assess safety with d/c home. Goals Bed Mobility Goal Independent Transfer Goal Independent,Front Wheeled Walker Gait Goal Independent,Front Wheel Walker Gait Distance 150 Other Goals up/down 1 step using FWW SBA Days to Meet Goals 5 Frequency of Treatment Frequency Of Treatment Twice a Day Treatment Plan Physical Therapy Treatment Plan Bed Mobility Training,Transfer Training,Gait Training, Therapeutic Exercise,Balance Retraining,Post Op Education, Discharge Planning,Hot or Cold Pack,Neuromuscular Re-ed, Coordination Retraining,Manual Therapy Weight Bearing Status Weight Bearing Status Weight Bear as Tolerated Allowed Weight Bearing Amount (enter % LLE WBAT or #) (%) Recommendations To Nursing Amount of Assist Needed 1 Person Assist Discharge Recommendations PT Discharge Recommendations Home with Assistance, Outpatient PT Transportation Needs at Discharge Private Vehicle
[2022-06-26 13:14] VITALS: BP 159/81; PULSE 77; RESP 18; O2SAT 92
--- NOTE | 2022-06-26 15:50 | PT.IPTN ---
Addendum entered and electronically signed by Stefanie Tijerina, SHAMIKA 06/26/22 19:52: Vitals: supine: BP 142/74 HR 66 SaO2 95% on RA, post mobility: BP 151/81 HR 73. Original Note: Current Diagnoses Unilateral primary osteoarthritis, left knee (06/26/22) Presence of unspecified artificial knee joint (06/26/22) Surgery Performed Operation Date: 06/25/22 13:30 Actual Procedures p Total Knee Arthroplasty(Left) - Sal Sheldon MD Physical Therapy Treatment Note M2 PT-IP Current Condition Start: 06/26/22 13:54 Freq: NEEDED Status: Active Protocol: Document 06/26/22 15:00 SP (Rec: 06/26/22 19:51 SP [id number]) Physical Therapy Current Condition Current Condition Evaluation Date 06/26/22 Treatment Diagnosis s/p L TKA; difficulty in walking Onset Date 06/25/22 M3 PT-IP Subjective Start: 06/26/22 13:54 Freq: NEEDED Status: Active Protocol: Document 06/26/22 15:00 SP (Rec: 06/26/22 19:51 SP [id number]) Subjective Physical Therapy Visit Type Type Treatment Note Visit Start Time 15:00 Visit Stop Time 15:50 Total Visit Minutes 50 Notes in room when arrived, completed caregiver training including donning gait belt, physical assist required throughout tx. Number of CUSTOMER ENGAGEMENT MANAGER Visits 1 Physical Therapy Visit Comments Patient Comments agreeable to do PT Patient Goals return home with to assist him Therapy Pain Assessment Pain When Pain Assessed During Mobility Pain Present Pain Present Pain Reported Location Left Knee Intensity 4 Scale Used Numeric (0 - 10) Description With Movement Pain Behaviors Facial Grimacing Pain Management Techniques Distraction,Elevation, Modification of Treatment,Re- positioning,Timing of Activity with Medications M4 PT-IP Mobility and Gait Start: 06/26/22 13:54 Freq: NEEDED Status: Active Protocol: Document 06/26/22 15:00 SP (Rec: 06/26/22 19:51 SP [id number]) PT-Bed Mobility Assessment Supine to Sit Supine to Sit Standby Assistance PT-Transfer Assessment Sit to and From Stand Sit to and from Stand Contact Guard Assistance, Minimal Assistance,1 Person Assistance,Use of Upper Extremities Equipment Transfer Assistive Device Gait Belt,Front Wheeled Walker Orthotic/Prosthetic Devices or Brace: No Transfers Transfer Destination Chair Transfer Technique ambulated w/ FWW Transfer Ability Level of Assist Contact Guard Assistance,1 Person Assistance,Use of Upper Extremities Comments Mobility Comments Instructed post op exercises: quad set, AP, heel slide approx 68 deg flexion L knee AROM, unable complete complete HOB flat supine>sit, scoot to EOB, use BUEs to support LLE to EOB. donned gait belt to pt's trunk. STS cued push from bed to come to full stand w/ FWW CG-10%A. Gait to bathroom w/ FWW, noted Le knee little unsteady no buckling during midstance phase throughout tx but slow pacing quad facilitation cues improved demonstration, completed self mgt gown cued contact rail safety stability during void in standing, cGA via , steady no sways/LOB. Gait to sink, washed hands, slight LOB retro contact sink for stability CGA. Completed 1 PF step mgt in room, CG- 10%A with support at trunk and FWW mgt as needed for safety ed for RLE ascend leading stable. Complete finsh gait around room and back to chair 35 ft total, 2 brief stop stand rests and breath recovery due to pain, decreased strength and activity tolerance. Pt returned to chair CG/ 10%A via assist. Pt able to elevate BLE in chair self. CUSTOMER ENGAGEMENT MANAGER instructed to walk about every hour at home and post op exercises with AAROM use gait belt gently <90 deg. Lacking strength for LAQ and SLR so discussed will perform later in outpt, continue rest 2-3 time daily. Pt would benefit from 1 more treatment to support increase strength mobilty and pain control before going home with spouse. Anticipate pt to do well tomorrow and can go home / can provide and already set up with outpt therapy next week. Gait Assessment Gait Gait Assistance Required: Contact Guard Assist,Minimum Assistance,1 Person Assist Distance (Feet) 35 Able to Maintain Weight Bearing Status Yes During Gait Assistive Devices Assistive Device Gait Belt,Front Wheeled Walker Orthotic/Prosthetic Devices or Brace: No Gait Deviations General Gait Pattern Antalgic,Decreased Stride Length,Decreased Feet Clearance,Lateral Trunk Lean, Step-to Gait Factors Limiting Gait Function Factors Limiting Gait Function Decreased Activity Tolerance, Decreased Strength,Limited Range of Motion,Pain,Poor Balance,Poor Safety Awareness Comments Gait Comments Cued tall posture, quad facilitation during midstance phase, knee/ hip flexion during swing phase and ascend step. Mod/heavy BUE WB on FWW , little unsteady but improved from am tx. Stair Climbing Assessment Evaluation Level of Assist On Stairs Contact Guard Assistance, Minimal Assistance,1 Person Assistance Devices Stair Climbing Assistive Devices Front Wheel Walker Technique/Endurance Stair Climbing Direction Ascend and Descend Stair Climbing Technique Step to Step Number of Steps Climbed 1 Stair Climbing Set # Repetitions (reps) 1 Comments Stair Climbing Comments step to patterning, cued for proper sequence LLE ascend/ RLE descend, spouse assisted FWW safety positioning needed support. PT-Balance Assessment Sitting Balance and Reactions Static Sitting Balance Ability Normal Dynamic Sitting Balance Ability Good Standing Balance and Reactions Static Standing Balance Ability Good Dynamic Standing Balance Ability Fair Device Used FWW M5 PT-IP Objective Assessments Start: 06/26/22 13:54 Freq: NEEDED Status: Active Protocol: Document 06/26/22 10:20 AB (Rec: 06/26/22 14:11 AB [id number]) Orientation Orientation/Cognition Level of Alertness Alert Orientation Name,Place,Situation Language Function Ability No Deficits Noted Safety Awareness Understands Safety Issues Memory Description No Deficits Noted Gross Range of Motion Lower Extremity ROM Assessment Left Impaired Impairments L knee flexion: ~70 deg Strength Lower Extremity Strength Assessment Left Impaired Hip 4-/5 Knee 3+/5 Coordination Assessment Gross Coordination Gross Coordination WNL Muscle Tone Muscle Tone WNL Yes M6 PT-IP Treatment Start: 06/26/22 13:54 Freq: NEEDED Status: Active Protocol: Document 06/26/22 15:00 SP (Rec: 06/26/22 19:51 SP [id number]) Physical Therapy Treatment Exercises Exercises Ankle Pumps,Quad Sets,Heel Slides,Seated Knee Flexion/ Extension Knee ROM Measurement 68 deg flexion AROM L knee Education Education Provided Precautions,Weight Bearing Status,Post-Op Packet,Safety Other Treatments Other Treatment Performed Demonstrated knee flexion slide foot back seated and can scoot forward. Aware A_ AAROM with strap no >90 deg flexion and no pillow under knee for allowance maintain 180 deg. M7 PT-IP Assessment and Plan Start: 06/26/22 13:54 Freq: NEEDED Status: Active Protocol: Document 06/26/22 15:00 SP (Rec: 06/26/22 19:51 SP [id number]) PT Summary Assessment and Plan Potential Rehabilitation Potential Fair Status of Condition at Evaluation Evolving Summary Impairments Pain,ROM,Strength,Balance, Coordination,Sensation,Tone, Cognition,Bed Mobility, Transfers,Gait,Activity Tolerance Progress Towards Goals Progressing Toward Goals,Slow Progress due to Pain,Slow Progress due to Activity Tolerance Assessment Summary Pt improved L knee stability, little unsteady but didn't buckle, continues to have uncomforted pain that limits mobility. bed mob SBA, STS, gait, 1 PF step mgt CG/ Min A w/FWW. Would benefit from 1 more PT tx for further distance gait and review HEP, recheck ROM. Pt is ok to return home with assist him 29/12 when medically cleared. Goals Bed Mobility Goal Independent Transfer Goal Independent,Front Wheeled Walker Gait Goal Independent,Front Wheel Walker Gait Distance 150 Other Goals up/down 1 step using FWW SBA Days to Meet Goals 5 Frequency of Treatment Frequency Of Treatment Twice a Day Treatment Plan Physical Therapy Treatment Plan Bed Mobility Training,Transfer Training,Gait Training, Therapeutic Exercise,Balance Retraining,Post Op Education, Discharge Planning,Hot or Cold Pack,Neuromuscular Re-ed, Coordination Retraining,Manual Therapy Other Recommendations and Next Treatment Recheck ROM (left goniometer Focus in room)-return to PT office, post op ex, transfers, gait w/ FWW further distance. Weight Bearing Status Weight Bearing Status Weight Bear as Tolerated Allowed Weight Bearing Amount (enter % LLE WBAT or #) (%) Recommendations To Nursing Amount of Assist Needed 1 Person Assist Discharge Recommendations PT Discharge Recommendations Home with Assistance,Home with 29/12 Assist Available, Outpatient PT Transportation Needs at Discharge Private Vehicle
--- NOTE | 2022-06-26 18:38 | PC.NURSE ---
Pt med for discomfort as per orders. Dsg to surgical knee CDI Pt knee unsteady (val) when ambulating Aqua/kai drsg CDI Call light w/in reach, Pt calls appropriately for needs. Continue w/plan of care.
[2022-06-26] MEDS: PANTOPRAZOLE DR 20 MG TABLET PO (20:18)
[2022-06-26 20:55] VITALS: BP 148/65; PULSE 69; RESP 16; TEMP 36.7; O2SAT 94
[2022-06-27] MEDS: ACETAMINOPHEN 325 MG TABLET 650 MG PO ×3 (00:27→12:03)
[2022-06-27] MEDS: IBUPROFEN 400 MG TABLET PO ×4 (00:27→12:04)
[2022-06-27] MEDS: SODIUM CHLORIDE 0.9% FLUSH 10 ML IV (00:35)
[2022-06-27] MEDS: OXYCODONE IR 5 MG TABLET PO ×4 (00:43→13:27)
[2022-06-27 06:57] VITALS: BP 133/67; PULSE 65; RESP 19; TEMP 36.8; O2SAT 96
--- NOTE | 2022-06-27 07:46 | P.PN_ITS ---
Subjective Subjective Date Patient Seen: 06/27/22 Time Patient Seen: 07:47 Interval history: Patient is sitting up comfortably in his chair icing his knee. He states he has had no problem urinating since yesterday. He worked with PT yesterday and felt somewhat unsteady on his feet. He is looking forward to working with them this morning because he had a good night's sleep and feels ready to go home today. Exam Vital Signs (past 8 hours): - 06/27/22 06:57 Temperature 98.2 F Pulse Rate 65 Respiratory Rate 19 Blood Pressure 133/67 Pulse Oximetry 96 Oxygen Flow Rate 0 Fraction of Inspired Oxygen 32 SaO2/FiO2 Ratio 303 Oxygen Delivery Method Nasal Cannula Oxygen Flow Rate 0 Narrative Exam Narrative: Alert and oriented x4. Strength and sensation intact to LLE. Left calf is soft, compressible, and nontender with no palpable cords or masses. Alexandre wrap and intraoperative Aquacel bandage clean dry and intact. Objective Labs Result Diagrams: 06/26/22 05:13 [facility] Medical History Abscess Arthritis Back pain with sciatica (~2009) Cellulitis Chicken pox (~1968) COVID-19 virus infection (04/2022) Dysphagia Eosinophilic esophagitis Esophageal dilatation Esophagus disorder GERD (gastroesophageal reflux disease) Hyperlipidemia Hypertension Impaired fasting glucose Lumbar spine pain (~2018) Obstructive sleep apnea Osteoarthritis (~2014) Overweight (BMI 25.0-29.9) Sciatica Severe obesity (BMI >= 40) Sleep apnea (~2017) Vitamin D deficiency Surgical History Anesthesia H/O removal of cyst History of cholecystectomy (~1984) History of foot surgery (~1995) History of knee replacement (~2015) Hx of arthroscopy of left knee Hx of arthroscopy of right knee Status post LASIK surgery (~1998) Family History Father Diabetes mellitus History of heart disease Hypertension Hyperlipidemia Smoker Mother Cancer History of heart disease Smoker Brother History of heart disease Brother Substance abuse Brother Stroke Social History household members: spouse Smoking Status: Never smoker alcohol intake: current Assessment & Plan Post-op Assessment and plan (1) Total knee replacement status: Assessment and Plan narrative: Patient progressing after left total knee replacement as expected. Discharge home after PT if PT agrees.? Multimodal pain control, ASA 81 mg BID for VTE prophylaxis, f/u as scheduled in 2 weeks. Postoperative Procedures: Procedures Operation Date: 06/25/22 13:30 Actual Procedure Side Surgeon p Total Knee Arthroplasty Left Sal Sheldon MD Postoperative day: 2 Postoperative status: doing well Postoperative plan: routine post-op care Quality VTE Deep Vein Thrombosis/Pulmonary Embolism Present on Admission: No
--- NOTE | 2022-06-27 08:13 | PT.IPTN ---
Current Diagnoses Unilateral primary osteoarthritis, left knee (06/26/22) Presence of unspecified artificial knee joint (06/26/22) Surgery Performed Operation Date: 06/25/22 13:30 Actual Procedures p Total Knee Arthroplasty(Left) - Sal Sheldon MD Physical Therapy Treatment Note M2 PT-IP Current Condition Start: 06/26/22 13:54 Freq: NEEDED Status: Active Protocol: Document 06/26/22 15:00 SP (Rec: 06/26/22 19:51 SP [id number]) Physical Therapy Current Condition Current Condition Evaluation Date 06/26/22 Treatment Diagnosis s/p L TKA; difficulty in walking Onset Date 06/25/22 M3 PT-IP Subjective Start: 06/26/22 13:54 Freq: NEEDED Status: Active Protocol: Document 06/27/22 08:04 AMB (Rec: 06/27/22 08:13 AMB [id number]) Subjective Physical Therapy Visit Type Type Treatment Note Visit Start Time 07:35 Visit Stop Time 08:00 Total Visit Minutes 25 Number of PERSONAL INVESTMENT ADVISER Visits 0 Physical Therapy Visit Comments Patient Comments agreeable to do PT Patient Goals return home with to assist him Therapy Pain Assessment Pain When Pain Assessed During Mobility Pain Present Pain Present Pain Reported Location Left Knee Intensity 5 Scale Used Numeric (0 - 10) Description With Movement Pain Behaviors Facial Grimacing Pain Management Techniques Distraction,Elevation, Modification of Treatment,Re- positioning,Timing of Activity with Medications M4 PT-IP Mobility and Gait Start: 06/26/22 13:54 Freq: NEEDED Status: Active Protocol: Document 06/27/22 08:04 AMB (Rec: 06/27/22 08:13 AMB [id number]) PT-Transfer Assessment Sit to and From Stand Sit to and from Stand Contact Guard Assistance,1 Person Assistance,Use of Upper Extremities Equipment Transfer Assistive Device Gait Belt,Front Wheeled Walker Orthotic/Prosthetic Devices or Brace: No Transfers Transfer Destination Chair Transfer Technique ambulated w/ FWW Transfer Ability Level of Assist Contact Guard Assistance,1 Person Assistance,Use of Upper Extremities Comments Mobility Comments [place] needed CGA for sit to stand from chair. Good safety awareness. Gait Assessment Gait Gait Assistance Required: Contact Guard Assist,Minimum Assistance,1 Person Assist Distance (Feet) 50 Able to Maintain Weight Bearing Status Yes During Gait Assistive Devices Assistive Device Gait Belt,Front Wheeled Walker Orthotic/Prosthetic Devices or Brace: No Gait Deviations General Gait Pattern Antalgic,Decreased Stride Length,Decreased Feet Clearance,Lateral Trunk Lean, Step-to Gait Factors Limiting Gait Function Factors Limiting Gait Function Decreased Activity Tolerance, Decreased Strength,Limited Range of Motion,Pain,Poor Balance,Poor Safety Awareness Comments Gait Comments Pt ambulated from chair down hallway, cued to pick feet up to avoid twisting while foot on the ground and relaxed shoulders. Ambulated back to room continued CGA stood at toilet to urinate and then stood at sink with good balance. Pt returned to chair with ice pack and call light within reach. M5 PT-IP Objective Assessments Start: 06/26/22 13:54 Freq: NEEDED Status: Active Protocol: Document 06/27/22 08:04 AMB (Rec: 06/27/22 08:13 AMB [id number]) Gross Range of Motion Lower Extremity ROM Impairments 10-72 M6 PT-IP Treatment Start: 06/26/22 13:54 Freq: NEEDED Status: Active Protocol: Document 06/26/22 15:00 SP (Rec: 06/26/22 19:51 SP [id number]) Physical Therapy Treatment Exercises Exercises Ankle Pumps,Quad Sets,Heel Slides,Seated Knee Flexion/ Extension Knee ROM Measurement 68 deg flexion AROM L knee Education Education Provided Precautions,Weight Bearing Status,Post-Op Packet,Safety Other Treatments Other Treatment Performed Demonstrated knee flexion slide foot back seated and can scoot forward. Aware A_ AAROM with strap no >90 deg flexion and no pillow under knee for allowance maintain 180 deg. M7 PT-IP Assessment and Plan Start: 06/26/22 13:54 Freq: NEEDED Status: Active Protocol: Document 06/27/22 08:04 AMB (Rec: 06/27/22 08:13 AMB [id number]) PT Summary Assessment and Plan Potential Rehabilitation Potential Fair Status of Condition at Evaluation Evolving Summary Impairments Pain,ROM,Strength,Balance, Coordination,Sensation,Tone, Cognition,Bed Mobility, Transfers,Gait,Activity Tolerance Progress Towards Goals Progressing Toward Goals,Slow Progress due to Pain,Slow Progress due to Activity Tolerance Assessment Summary Pt ambulating slowly but with CGA for sit to stand and gait. Pt stood to urinate and wash hands with good static balance. Encouraged pt in ROM . Discussed car transfer and continued need for ROM and ice . Pt should be able to return areli with when medically cleared. Goals Bed Mobility Goal Independent Transfer Goal Independent,Front Wheeled Walker Gait Goal Independent,Front Wheel Walker Gait Distance 150 Other Goals up/down 1 step using FWW SBA Days to Meet Goals 5 Frequency of Treatment Frequency Of Treatment Discharge Treatment Plan Physical Therapy Treatment Plan Bed Mobility Training,Transfer Training,Gait Training, Therapeutic Exercise,Balance Retraining,Post Op Education, Discharge Planning,Hot or Cold Pack,Neuromuscular Re-ed, Coordination Retraining,Manual Therapy Weight Bearing Status Weight Bearing Status Weight Bear as Tolerated Allowed Weight Bearing Amount (enter % LLE WBAT or #) (%) Recommendations To Nursing Amount of Assist Needed 1 Person Assist Discharge Recommendations PT Discharge Recommendations Home with Assistance,Home with 29/12 Assist Available, Outpatient PT Transportation Needs at Discharge Private Vehicle
[2022-06-27] MEDS: ASPIRIN EC 81 MG TABLET PO (08:25)
[2022-06-27] MEDS: DOCUSATE 100 MG CAPSULE PO (08:26)
[2022-06-27 08:27] VITALS: BP 133/67; PULSE 65
[2022-06-27] MEDS: lisinopriL 20 MG TABLET 40 MG PO (08:27)
[2022-06-27 09:52] VITALS: BP 134/66; PULSE 70; RESP 18; TEMP 36.9; O2SAT 98
--- NOTE | 2022-06-27 11:37 | PC.NURSE ---
Addendum entered by Isidro Rosado R.N. 06/27/22 15:23: 13:55 Pt d/c'd to care of his . IV d/c'd per protocol. Pt escorted to car and care of via w/c. D/c instructions given and understood by Pt and . Original Note: Pt a&o has had prior knee surgery and is remembering the rountine. Tolerating activity fairly well up in chair up to shower. Aquacel CDI.. Anticipating going home today.
== END 2022-06-27 13:55 | disposition home or self-care (01) ==
LOC: OR 10:39 → AC 10:39
PROVIDERS: Admitting Provider Orthopaedic Surgery; PCP Nurse Practitioner; Referring Provider Internal Medicine; Visit Provider Orthopaedic Surgery
PROC: 0SRD0JZ Replacement of Left Knee Joint with Synthetic Substitute, Open Approach (ICD-10-PCS; CPT 27447; principal; 2022-06-25 13:30)
DX: M17.12 Unilateral primary osteoarthritis, left knee (principal); M25.762 Osteophyte, left knee
CPT/HCPCS: 27447; 36415; 73560; 85014; 85018; 94760; 97116; 97162; 97530; C1776; G0378; C1713; C9290; J0690; J1100; J2250; J2270; J2405; J2704; J3010